=== PATIENT | female | born 1990 | race Caucasian/White ===

== ENCOUNTER 2019-05-15 18:27 | Emergency (ER) | payer OTHER ==
[~2019-05-15] VITALS: Ht 157.5 cm; Wt 49.1 kg
[2019-05-15] MEDS ORDERED: ONDANSETRON 4MG/2ML VIAL (J2405) IV ONE (19:30)
[2019-05-15] MEDS ORDERED: KETOROLAC 30 MG/ML VIAL (J1885) IV ONE (19:30)
[2019-05-15] MEDS ORDERED: NS 1,000 ML IV ONE (19:30)
[2019-05-15 19:58] LABS: BASO % 0.3 % (0.0-1.0); EOS # 0.2 10^3/uL (0.0-0.5); EOS % 2.7 % (0.0-3.0); HEMATOCRIT 38.2 % (36.0-47.0); HEMOGLOBIN 12.3 g/dl (12.0-15.5); LYMPH # 2.4 10^3/uL (1.5-5.0); LYMPH % 38.2 % (24.0-44.0); MEAN CORPUSCULAR HEMOGLOBIN 27.6 pg (27.0-33.0); MEAN CORPUSCULAR HGB CONC 32.2 g/dl (32.0-36.5); MEAN CORPUSCULAR VOLUME 85.7 fl (80.0-96.0); MONO # 0.5 10^3/uL (0.0-0.8); MONO % 7.7 % (0.0-5.0); NEUTROPHILS # 3.3 10^3/uL (1.5-8.5); NEUTROPHILS % 50.9 % (36.0-66.0); PLATELET COUNT, AUTOMATED 238 10^3/uL (150-450); RED BLOOD COUNT 4.46 10^6/uL (4.00-5.40); WHITE BLOOD COUNT 6.4 10^3/uL (4.0-10.0)
[2019-05-15 20:25] LABS: ALT/SGPT 23 U/L (12-78); BILIRUBIN,DIRECT < 0.1 MG/DL (0.0-0.2); BILIRUBIN,TOTAL 0.2 MG/DL (0.2-1.0); BLOOD UREA NITROGEN 16 MG/DL (7-18); CALCIUM LEVEL 9.2 MG/DL (8.5-10.1); CARBON DIOXIDE LEVEL 27 MEQ/L (21-32); CHLORIDE LEVEL 106 MEQ/L (98-107); CREATININE FOR GFR 0.68 MG/DL (0.55-1.30); GLOMERULAR FILTRATION RATE > 60.0 (>60); GLUCOSE, FASTING 107 MG/DL (70-100); LIPASE 101 U/L (73-393); SODIUM LEVEL 142 MEQ/L (136-145); TOTAL PROTEIN 7.5 GM/DL (6.4-8.2)
[2019-05-15] MEDS ORDERED: METOCLOPRAMIDE INJ 10MG/2ML VIAL (J2765) IV ONE (21:30)
[2019-05-15] MEDS: MORPHINE 4 MG/ML 1ML VIAL/SYRINGE (J2270) IV PRN ×2 (21:44→22:36)
[2019-05-15] MEDS: GASTROGRAFIN SOLUTION 30ML PO SCH ×2 (21:54→22:36)
[2019-05-15 23:09] LABS: CHLAMYDIA DNA AMPLIFICATION NEGATIVE (NEGATIVE); GC DNA AMPLIFICATION NEGATIVE (NEGATIVE)
[2019-05-15] MEDS ORDERED: ISOVUE-370 76% 100ML VIAL (Q9967) As Ordered ONE (23:30)
--- NOTE | 2019-05-16 00:17 | REPVR ---
PROCEDURE INFORMATION: Exam: CT Abdomen And Pelvis With Contrast Exam date and time: 05/15/2019 11:37 PM Age: 28 years old Clinical history: Abdominal pain; Localized; Lower; Additional info: Lower abd pain TECHNIQUE: Imaging protocol: Computed tomography of the abdomen and pelvis with intravenous contrast. Radiation optimization: All CT scans at this facility use at least one of these dose optimization techniques: automated exposure control; mA and/or kV adjustment per patient size (includes targeted exams where dose is matched to clinical indication); or iterative reconstruction. Contrast material: ISOVUE 370; Contrast volume: 100 ml; Contrast route: IV; COMPARISON: No relevant prior studies available. FINDINGS: Liver: There is intrahepatic and extra hepatic biliary duct dilation. The common bile and measuring up to 16 mm. Liver is otherwise unremarkable. Gallbladder and bile ducts: There has been prior cholecystectomy. No obstructing biliary tract calculus or mass. Pancreas: Normal. No ductal dilation. Spleen: Normal. No splenomegaly. Adrenals: Normal. No mass. Kidneys and ureters: Normal. No hydronephrosis. Stomach and bowel: Mild wall thickening in the sigmoid colon and rectum. No pneumatosis, obstruction, or mass. Proximal colon and small bowel are unremarkable. No obstruction. Appendix: No evidence of appendicitis. Intraperitoneal space: Unremarkable. No free air. No significant fluid collection. Vasculature: Unremarkable. No abdominal aortic aneurysm. Lymph nodes: Unremarkable. No enlarged lymph nodes. Bladder: Unremarkable as visualized. Reproductive: Unremarkable as visualized. Bones/joints: Unremarkable. No acute fracture. Soft tissues: Unremarkable. IMPRESSION: 1. Mild wall thickening in the sigmoid colon and rectum suggesting a mild proctocolitis. No bowel obstruction. 2. Intrahepatic and extrahepatic biliary duct dilation. No obstructing calculus is seen. Electronically signed by: Ayaan Lutz On 05/16/2019 00:16:59 AM
[2019-05-16] MEDS ORDERED: OXYCODONE/APAP 5MG/325MG(BULK FOR ED) 1 TABLET PO ONE (01:15)
[2019-05-16 01:24] VITALS: BP 110/59
== END 2019-05-16 01:35 | disposition home or self-care (01) ==
LOC: M ED 18:27
DX: N80.9 Endometriosis, unspecified (principal)
CPT/HCPCS: 74177; 80048; 80076; 81001; 83690; 84702; 85025; 87661; 96361; 96374; 96375; 99284; J1885; J2270; J2405; J2765; Q9963; Q9967

== ENCOUNTER 2019-10-15 18:23 | Emergency (ER) | payer OTHER ==
[~2019-10-15] VITALS: Ht 157.5 cm; Wt 50.5 kg
[2019-10-15 18:23] VITALS: BP 156/80
[2019-10-15] MEDS ORDERED: EVEN500C3 PO (18:28)
[2019-10-15] MEDS ORDERED: CETI10CA2 PO (18:28)
[2019-10-15] MEDS ORDERED: NS 1,000 ML IV ONE (19:00)
[2019-10-15] MEDS ORDERED: KETOROLAC 30 MG/ML 1ML VIAL IV ONE (19:00)
[2019-10-15] MEDS ORDERED: ONDANSETRON 4MG/2ML VIAL IV ONE (19:00)
[2019-10-15] MEDS ORDERED: ISOVUE-370 76% 100ML VIAL As Ordered ONE (19:20)
[2019-10-15 19:37] LABS: BASO % 0.6 % (0.0-1.0); EOS # 0.3 10^3/uL (0.0-0.5); EOS % 3.7 % (0.0-3.0); HEMATOCRIT 37.6 % (36.0-47.0); HEMOGLOBIN 12.5 g/dl (12.0-15.5); LYMPH # 2.9 10^3/uL (1.5-5.0); LYMPH % 40.7 % (24.0-44.0); MEAN CORPUSCULAR HEMOGLOBIN 27.7 pg (27.0-33.0); MEAN CORPUSCULAR HGB CONC 33.2 g/dl (32.0-36.5); MEAN CORPUSCULAR VOLUME 83.2 fl (80.0-96.0); MONO # 0.4 10^3/uL (0.0-0.8); NEUTROPHILS # 3.4 10^3/uL (1.5-8.5); NEUTROPHILS % 48.7 % (36.0-66.0); PLATELET COUNT, AUTOMATED 205 10^3/uL (150-450); RED BLOOD COUNT 4.52 10^6/uL (4.00-5.40)
[2019-10-15] MEDS ORDERED: MORPHINE 4 MG/ML 1ML VIAL/SYRINGE (J2270) IV ONE ×2 (19:45→20:30)
--- NOTE | 2019-10-15 19:50 | REPVR ---
PROCEDURE INFORMATION: Exam: CT Abdomen And Pelvis With Contrast Exam date and time: 10/15/2019 7:25 PM Age: 28 years old Clinical indication: Abdominal pain; Additional info: Llq pain TECHNIQUE: Imaging protocol: Computed tomography of the abdomen and pelvis with intravenous contrast. Radiation optimization: All CT scans at this facility use at least one of these dose optimization techniques: automated exposure control; mA and/or kV adjustment per patient size (includes targeted exams where dose is matched to clinical indication); or iterative reconstruction. Contrast material: ISO 370; Contrast volume: 100 ml; Contrast route: IV; COMPARISON: CT ABD/PEL W/IV ORAL CONTRAS 2019-05-15 23:35 FINDINGS: Liver: Normal. No mass. Gallbladder and bile ducts: Cholecystectomy clips in the right upper quadrant. There is a mild, expected degree of intrahepatic and common bile duct dilation. Pancreas: Normal. No ductal dilation. Spleen: Normal. No splenomegaly. Adrenals: Normal. No mass. Kidneys and ureters: Normal. No hydronephrosis. Stomach and bowel: Question mild wall thickening of the descending colon, correlate for mild infectious or inflammatory bowel disease. Appendix: No evidence of appendicitis. Intraperitoneal space: Unremarkable. No free air. No significant fluid collection. Vasculature: Unremarkable. No abdominal aortic aneurysm. Lymph nodes: Unremarkable. No enlarged lymph nodes. Bladder: Unremarkable as visualized. Reproductive: Hysterectomy. Bones/joints: Unremarkable. No acute fracture. Soft tissues: Unremarkable. IMPRESSION: Question mild wall thickening of the descending colon, correlate for mild infectious or inflammatory bowel disease. Electronically signed by: Dmitry Galvez On 10/15/2019 19:49:57 PM
[2019-10-15 20:01] LABS: ALBUMIN 4.6 GM/DL (3.2-5.2); BILIRUBIN,DIRECT 0.2 MG/DL (0.0-0.2); BILIRUBIN,TOTAL 0.5 MG/DL (0.2-1.0); TOTAL PROTEIN 8.1 GM/DL (6.4-8.2)
[2019-10-15] MEDS ORDERED: ONDA4TAB6 PO (20:27)
[2019-10-15] MEDS ORDERED: PRED20TA PO (20:27)
[2019-10-15] MEDS ORDERED: CIPR-249 PO (20:27)
[2019-10-15] MEDS ORDERED: FLAG500T PO (20:27)
[2019-10-15] MEDS ORDERED: CIPROFLOXACIN 500MG TABLET PO ONE (20:30)
[2019-10-15] MEDS ORDERED: METOCLOPRAMIDE INJ 10MG/2ML VIAL (J2765 PER 1) IV ONE (20:30)
[2019-10-15] MEDS ORDERED: methylPREDNISolone INJ 125 MG/2 ML VIAL (J2930) IV ONE (20:30)
[2019-10-15] MEDS ORDERED: metroNIDAZOLE (FLAGYL) 500 MG TAB PO ONE (20:30)
== END 2019-10-15 21:30 | disposition home or self-care (01) ==
LOC: M ED 18:23
DX: K52.9 Noninfective gastroenteritis and colitis, unspecified (principal); N80.9 Endometriosis, unspecified; Z79.899 Other long term (current) drug therapy
CPT/HCPCS: 74177; 80047; 80076; 81001; 83690; 85025; 96361; 96374; 96375; 96376; 99283; J1885; J2270; J2405; J2765; J2930; Q9967

== ENCOUNTER 2020-01-23 11:00 | Day surgery (SDC) | payer OTHER ==
[~2020-01-23 11:00] MED LIST: CETI10CA2 PO; CIPR-249 PO; EVEN500C3 PO; FLAG500T PO; ONDA4TAB6 PO; PRED20TA PO
[2020-01-23] MEDS ORDERED: LIDOCAINE 2% 100MG/5ML SDV (FOR ANES.) As Ordered ONE (11:40)
[2020-01-23] MEDS ORDERED: propofoL 200 MG/20 ML VIAL As Ordered ONE (11:40)
--- NOTE | 2020-02-29 11:27 | ROOR ---
Patient Name: Rhoda Berkowitz Procedure Date: 01/23/2020 11:38 AM Date of : 1990 Age: 29 Room: [facility] Gender: Female Note Status: Rn Intake Override Procedure: Total Colonoscopy to Cecum + ileoscopy Indications: Lower abdominal pain, Abnormal CT of the GI tract Providers: Dario Gonzales MD Referring MD: 1. No Referring Physician 1. No Referring Physician, Admin. Requesting Provider: Medicines: Monitored Anesthesia Care Complications: No immediate complications. Procedure: Pre-Anesthesia Assessment: - The heart rate, respiratory rate, oxygen saturations, blood pressure, adequacy of pulmonary ventilation, and response to care were monitored throughout the procedure. The Colonoscope was introduced through the anus and advanced to the terminal ileum, with identification of the appendiceal orifice and IC valve. The colonoscopy was performed without difficulty. The patient tolerated the procedure well. The quality of the bowel preparation was good. Findings: The perianal and digital rectal examinations were normal. Non-bleeding internal hemorrhoids were found during retroflexion. The hemorrhoids were small and Grade I (internal hemorrhoids that do not prolapse). No other significant abnormalities were identified in a careful examination of the remainder of the colon. The terminal ileum appeared normal. The exam was otherwise without abnormality. Impression: - Non-bleeding internal hemorrhoids. - The examined portion of the ileum was normal. - The examination was otherwise normal. - No specimens collected. - The exam was otherwise normal to the cecum. Recommendation: - Patient has a contact number available for emergencies. The signs and symptoms of potential delayed complications were discussed with the patient. Return to normal activities tomorrow. Written discharge instructions were provided to the patient. - High fiber diet. - Discharge patient to home. - Continue present medications. - Repeat colonoscopy at age 51 for screening purposes. - Return to referring physician. - The findings and recommendations were discussed with the patient. Dario Gonzales MD Dario Gonzales MD 01/23/2020 11:59:12 AM Number of Addenda: 0 Note Initiated On: 01/23/2020 11:38 AM Estimated Blood Loss: Estimated blood loss: none.
== END 2020-01-23 12:30 | disposition home or self-care (01) ==
LOC: M OPP 11:00
PROVIDERS: ATTEND Internal Medicine Gastroenterology
DX: K64.0 First degree hemorrhoids (principal); R10.30 Lower abdominal pain, unspecified; R93.3 Abnormal findings on diagnostic imaging of other parts of digestive tract

== ENCOUNTER 2020-11-07 13:51 | Emergency (ER) | payer OTHER ==
[~2020-11-07] VITALS: Ht 157.5 cm; Wt 47.7 kg
[2020-11-07] MEDS ORDERED: MORPHINE 4 MG/ML 1ML VIAL/SYRINGE (J2270) IV ONE ×2 (17:20→18:30)
[2020-11-07] MEDS ORDERED: ONDANSETRON 4MG/2ML VIAL IV ONE (17:20)
[2020-11-07] MEDS ORDERED: NS 1,000 ML IV ONE (17:20)
[2020-11-07 17:28] LABS: BASO % 0.3 % (0.0-1.0); EOS # 0.1 10^3/uL (0.0-0.5); EOS % 1.8 % (0.0-3.0); HEMATOCRIT 36.3 % (36.0-47.0); LYMPH # 2.4 10^3/uL (1.5-5.0); LYMPH % 39.8 % (24.0-44.0); MEAN CORPUSCULAR HEMOGLOBIN 27.4 pg (27.0-33.0); MEAN CORPUSCULAR HGB CONC 33.1 g/dl (32.0-36.5); MEAN CORPUSCULAR VOLUME 82.9 fl (80.0-96.0); MONO # 0.4 10^3/uL (0.0-0.8); MONO % 6.2 % (2.0-8.0); NEUTROPHILS # 3.2 10^3/uL (1.5-8.5); NEUTROPHILS % 51.6 % (36.0-66.0); PLATELET COUNT, AUTOMATED 230 10^3/uL (150-450); RED BLOOD COUNT 4.38 10^6/uL (4.00-5.40); WHITE BLOOD COUNT 6.1 10^3/uL (4.0-10.0)
[2020-11-07 17:33] LABS: ALBUMIN 4.3 GM/DL (3.2-5.2); ALT/SGPT 20 U/L (12-78); BILIRUBIN,DIRECT < 0.1 MG/DL (0.0-0.2); BILIRUBIN,TOTAL 0.4 MG/DL (0.2-1.0); LIPASE 125 U/L (73-393); TOTAL PROTEIN 7.7 GM/DL (6.4-8.2)
[2020-11-07] MEDS ORDERED: ISOVUE-370 76% 100ML VIAL As Ordered ONE (17:43)
--- NOTE | 2020-11-07 18:44 | REPVR ---
PROCEDURE INFORMATION: Exam: CT Abdomen And Pelvis With Contrast Exam date and time: 11/07/2020 5:55 PM Age: 29 years old Clinical indication: Other: Llq abd pain TECHNIQUE: Imaging protocol: Computed tomography of the abdomen and pelvis with contrast. Radiation optimization: All CT scans at this facility use at least one of these dose optimization techniques: automated exposure control; mA and/or kV adjustment per patient size (includes targeted exams where dose is matched to clinical indication); or iterative reconstruction. Contrast material: ISOVUE 370; Contrast volume: 100 ml; Contrast route: INTRAVENOUS (IV); COMPARISON: CT ABD/PEL W/IV CONTRAST ONLY 10/15/2019 7:21 PM FINDINGS: Lungs: The lung bases are unremarkable. Liver: There are no focal liver lesions. Liver parenchyma appears low dense which can be seen with fatty infiltration. There is a patent megaly with right lobe measurement of 19.4 cm in length. Dilatation of the distal hepatic bile duct and common bile duct is again noted. Gallbladder and bile ducts: Cholecystectomy. Pancreas: The pancreas is normal. Spleen: The spleen is unremarkable. Adrenal glands: The adrenal glands are unremarkable. Kidneys and ureters: The kidneys are unremarkable. Stomach and bowel: There is no small bowel dilatation. The descending colonic wall as well as the sigmoid colonic wall appears thickened however they are decompressed which limits evaluation. Palacio are not hyperemic. No pericolonic stranding is seen. Appendix: No evidence of appendicitis. Intraperitoneal space: Unremarkable. No free air. No significant fluid collection. Vasculature: The aorta is unremarkable. Lymph nodes: Unremarkable. No enlarged lymph nodes. Urinary bladder: The bladder is unremarkable. Reproductive: Unremarkable as visualized. Bones/joints: Unremarkable. No acute fracture. Soft tissues: Unremarkable. IMPRESSION: 1. As on the prior examination there appears to be thickening of the descending colonic wall as well as sigmoid colon although these 2 segments are decompressed. This may be due to infectious or noninfectious inflammatory disease among other etiologies. 2. There appears to be hepatomegaly with possible fatty infiltration. Electronically signed by: Elda Dillon On 11/07/2020 18:43:43 PM
[2020-11-07 19:35] VITALS: BP 132/77
[2020-11-07] MEDS ORDERED: DICYCLOMINE 10 MG CAP PO ONE (20:10)
[2020-11-07] MEDS ORDERED: DICY10CA13 PO (20:10)
[2020-11-07] MEDS ORDERED: CIPR-249 PO (20:10)
[2020-11-07] MEDS ORDERED: CIPROFLOXACIN 500MG TABLET PO ONE (20:10)
== END 2020-11-07 20:35 | disposition home or self-care (01) ==
LOC: M ED 13:51
DX: R10.32 Left lower quadrant pain (principal); K52.9 Noninfective gastroenteritis and colitis, unspecified; N80.9 Endometriosis, unspecified; J45.909 Unspecified asthma, uncomplicated
CPT/HCPCS: 74177; 80047; 80076; 81001; 83690; 84702; 85025; 96361; 96374; 96375; 96376; 99284; J2270; J2405; Q9967

== ENCOUNTER 2020-11-16 15:26 | Emergency (ER) | payer OTHER ==
[~2020-11-16] VITALS: Ht 157.5 cm; Wt 48.5 kg
[~2020-11-16 15:26] MED LIST changes: +DICY10CA13 PO
[2020-11-16 16:19] LABS: HEMOGLOBIN 12.2 g/dl (12.0-15.5); MEAN CORPUSCULAR HEMOGLOBIN 27.1 pg (27.0-33.0); MEAN CORPUSCULAR HGB CONC 32.1 g/dl (32.0-36.5); MEAN CORPUSCULAR VOLUME 84.3 fl (80.0-96.0); PLATELET COUNT, AUTOMATED 242 10^3/uL (150-450); RED BLOOD COUNT 4.51 10^6/uL (4.00-5.40); WHITE BLOOD COUNT 4.3 10^3/uL (4.0-10.0)
[2020-11-16 16:44] LABS: ALBUMIN 4.2 GM/DL (3.2-5.2); ALT/SGPT 20 U/L (12-78); BILIRUBIN,DIRECT < 0.1 MG/DL (0.0-0.2); BILIRUBIN,TOTAL 0.3 MG/DL (0.2-1.0); BLOOD UREA NITROGEN 17 MG/DL (7-18); CALCIUM LEVEL 9.8 MG/DL (8.5-10.1); CARBON DIOXIDE LEVEL 30 MEQ/L (21-32); CHLORIDE LEVEL 104 MEQ/L (98-107); CREATININE FOR GFR 0.74 MG/DL (0.55-1.30); GLOMERULAR FILTRATION RATE > 60.0 (>60); GLUCOSE, FASTING 84 MG/DL (70-100); LIPASE 136 U/L (73-393); POTASSIUM SERUM 4.5 MEQ/L (3.5-5.1); SODIUM LEVEL 138 MEQ/L (136-145); TOTAL PROTEIN 7.4 GM/DL (6.4-8.2)
[2020-11-16 16:54] LABS: ATYPICAL LYMPH 33 % (0-5); EOSINOPHILS 7 % (0-3); LYMPHOCYTES 28 % (16-44); MONOCYTES 1 % (0-5); NEUTROPHILS 26 % (28-66); PLATELET ESTIMATE NORMAL (NORMAL)
[2020-11-16] MEDS ORDERED: ONDANSETRON 4MG/2ML VIAL IV ONE ×2 (18:30→22:35)
[2020-11-16] MEDS ORDERED: NS 1,000 ML IV ONE (18:30)
[2020-11-16] MEDS ORDERED: MORPHINE 4 MG/ML 1ML VIAL/SYRINGE (J2270) IV ONE ×2 (18:30→21:45)
[2020-11-16 18:44] LABS: HCG, SERUM QUALITATIVE NEGATIVE (NEGATIVE)
[2020-11-16] MEDS: GASTROGRAFIN SOLUTION 30ML PO SCH ×2 (19:34→20:10)
[2020-11-16] MEDS ORDERED: KETOROLAC 30 MG/ML 1ML VIAL IV ONE (20:15)
[2020-11-16] MEDS ORDERED: ISOVUE-370 76% 100ML VIAL As Ordered ONE (20:46)
--- NOTE | 2020-11-16 22:06 | REPVR ---
PROCEDURE INFORMATION: Exam: CT Abdomen And Pelvis With Contrast Exam date and time: 11/16/2020 9:34 PM Age: 29 years old Clinical indication: Abdominal pain; Localized; Right lower quadrant (rlq); Additional info: Rlq abd pain TECHNIQUE: Imaging protocol: Computed tomography of the abdomen and pelvis with contrast. Radiation optimization: All CT scans at this facility use at least one of these dose optimization techniques: automated exposure control; mA and/or kV adjustment per patient size (includes targeted exams where dose is matched to clinical indication); or iterative reconstruction. Contrast material: ISOVUE 370; Contrast volume: 100 ml; Contrast route: INTRAVENOUS (IV); COMPARISON: CT ABD/PEL W/IV CONTRAST ONLY 11/07/2020 5:45 PM FINDINGS: Liver: Normal. No mass. Gallbladder and bile ducts: There has been a cholecystectomy. Pancreas: Normal. No ductal dilation. Spleen: Normal. No splenomegaly. Adrenal glands: Normal. No mass. Kidneys and ureters: Normal. No hydronephrosis. Stomach and bowel: Mobile cecum with increased feces demonstrated in the cecum and ascending colon consistent with right-sided constipation. Mild thickening of the wall of the left colon likely related to incomplete distention. Clinical correlation to exclude left-sided segmental colitis suggested. Appendix: The appendix is within normal limits. There is no appendiceal enlargement, periappendiceal inflammatory changes or abscess. Intraperitoneal space: Unremarkable. No free air. No significant fluid collection. Vasculature: Unremarkable. No abdominal aortic aneurysm. Lymph nodes: Unremarkable. No enlarged lymph nodes. Urinary bladder: Unremarkable as visualized. Reproductive: 2.8 cm simple appearing cyst right ovary likely functional. There has been a hysterectomy. Bones/joints: Unremarkable. No acute fracture. Soft tissues: Unremarkable. IMPRESSION: 1. There has been a cholecystectomy. 2. The appendix is within normal limits. There is no appendiceal enlargement, periappendiceal inflammatory changes or abscess. 3. Mobile cecum with increased feces demonstrated in the cecum and ascending colon consistent with right-sided constipation. 4. There has been a hysterectomy. 5. Mild thickening of the wall of the left colon likely related to incomplete distention. Clinical correlation to exclude left-sided segmental colitis suggested. There is a diffuse decrease in hepatic parenchymal density, consistent with steatosis. Electronically signed by: Ron Guajardo On 11/16/2020 22:06:05 PM
[2020-11-16] MEDS ORDERED: MIRALAX *UNIT DOSE* 17GM PACKET PO STA (22:08)
[2020-11-16] MEDS ORDERED: MAGNESIUM CITRATE 300 ML BTL PO ONE (22:35)
[2020-11-16 23:30] VITALS: BP 117/73
[2020-11-16] MEDS ORDERED: ONDA4TAB6 PO (23:36)
[2020-11-16] MEDS ORDERED: MIRA3350 PO (23:36)
== END 2020-11-16 23:49 | disposition home or self-care (01) ==
LOC: M ED 15:26
DX: K59.00 Constipation, unspecified (principal); R11.2 Nausea with vomiting, unspecified; R10.31 Right lower quadrant pain; J45.909 Unspecified asthma, uncomplicated; Z90.710 Acquired absence of both cervix and uterus
CPT/HCPCS: 74177; 80048; 80076; 81001; 83690; 84703; 85025; 96361; 96374; 96375; 96376; 99284; J1885; J2270; J2405; Q9963; Q9967

== ENCOUNTER 2021-03-25 07:54 | Emergency (ER) | payer OTHER ==
[~2021-03-25] VITALS: Ht 162.6 cm; Wt 48.4 kg
[~2021-03-25 07:54] MED LIST changes: +MIRA3350 PO
[2021-03-25] MEDS ORDERED: NAPR220C14 PO (08:05)
[2021-03-25] MEDS ORDERED: ONDANSETRON 4MG/2ML VIAL IV ONE (08:35)
[2021-03-25] MEDS ORDERED: KETOROLAC 30 MG/ML 1ML VIAL IV ONE ×3 (08:35→11:10)
[2021-03-25 09:04] LABS: BASO % 0.4 % (0.0-1.0); EOS # 0.2 10^3/uL (0.0-0.5); EOS % 3.6 % (0.0-3.0); HEMATOCRIT 37.5 % (36.0-47.0); HEMOGLOBIN 12.3 g/dl (12.0-15.5); LYMPH # 1.9 10^3/uL (1.5-5.0); LYMPH % 41.1 % (24.0-44.0); MEAN CORPUSCULAR HEMOGLOBIN 27.2 pg (27.0-33.0); MEAN CORPUSCULAR HGB CONC 32.8 g/dl (32.0-36.5); MEAN CORPUSCULAR VOLUME 82.8 fl (80.0-96.0); MONO # 0.3 10^3/uL (0.0-0.8); NEUTROPHILS # 2.2 10^3/uL (1.5-8.5); NEUTROPHILS % 47.5 % (36.0-66.0); PLATELET COUNT, AUTOMATED 235 10^3/uL (150-450); RED BLOOD COUNT 4.53 10^6/uL (4.00-5.40); WHITE BLOOD COUNT 4.7 10^3/uL (4.0-10.0)
[2021-03-25 09:05] LABS: APPEARANCE, URINE CLEAR (CLEAR); BACTERIA, URINE AUTO NEGATIVE (NEGATIVE); BILIRUBIN, URINE AUTO NEGATIVE (NEGATIVE); BLOOD, URINE BLOOD NEGATIVE (NEGATIVE); COLOR, URINE YELLOW (YELLOW); GLUCOSE, URINE (UA) AUTO NEGATIVE (NEGATIVE); KETONE, URINE AUTO NEGATIVE (NEGATIVE); LEUKOCYTE ESTERASE, URINE AUTO NEGATIVE (NEGATIVE); NITRITE, URINE AUTO NEGATIVE (NEGATIVE); PROTEIN, URINE AUTO NEGATIVE (NEGATIVE); RBC, URINE AUTO 0 /HPF (0-3); SPECIFIC GRAVITY URINE AUTO 1.015 (1.002-1.035); SQUAMOUS EPITHELIAL CELL UR AU 2 /HPF (0-6); UROBILINOGEN, URINE AUTO 0.2 mg/dL (0.0-2.0); WBC, URINE AUTO 0 /HPF (0-3)
[2021-03-25 09:26] LABS: ALBUMIN 4.1 GM/DL (3.2-5.2); ALT/SGPT 18 U/L (12-78); BILIRUBIN,DIRECT 0.1 MG/DL (0.0-0.2); BILIRUBIN,TOTAL 0.3 MG/DL (0.2-1.0); BLOOD UREA NITROGEN 23 MG/DL (7-18); CALCIUM LEVEL 9.1 MG/DL (8.5-10.1); CARBON DIOXIDE LEVEL 27 MEQ/L (21-32); CHLORIDE LEVEL 105 MEQ/L (98-107); CREATININE FOR GFR 0.84 MG/DL (0.55-1.30); GLOMERULAR FILTRATION RATE > 60.0 (>60); GLUCOSE, FASTING 108 MG/DL (70-100); LIPASE 91 U/L (73-393); SODIUM LEVEL 137 MEQ/L (136-145); TOTAL PROTEIN 7.6 GM/DL (6.4-8.2)
--- NOTE | 2021-03-25 10:02 | REP ---
INDICATION: left lower quadrant pain. COMPARISON: Comparison is made with CT images from November 16, 2020. TECHNIQUE: Supine film of the abdomen. Single KUB. FINDINGS: Bowel gas pattern is normal. Monitoring electrodes are seen. There are clips in right upper quadrant of the abdomen. Flank stripes are intact. Psoas margins are symmetric. No mass, organomegaly, or pathologic calcification is seen. IMPRESSION: Unremarkable KUB. Right upper quadrant clips. <Electronically signed by Jermaine Romero > 03/25/21 [id number]
[2021-03-25 10:12] LABS: AMPHETAMINES LEVEL URINE NEGATIVE (NEGATIVE); BARBITURATES URINE NEGATIVE (NEGATIVE); BENZODIAZEPINES URINE NEGATIVE (NEGATIVE); CANNABINOIDS URINE POSITIVE (NEGATIVE); COCAINE METABOLITE URINE NEGATIVE (NEGATIVE); METHADONE URINE NEGATIVE (NEGATIVE); OPIATES URINE NEGATIVE (NEGATIVE); PHENCYCLIDINE URINE NEGATIVE (NEGATIVE)
--- NOTE | 2021-03-25 11:22 | REP ---
INDICATION: left lower quadrant pain COMPARISON: None TECHNIQUE: Real time castillo scale ultrasound examination using curved array transducer. FINDINGS: Bilateral kidneys are normal in contour, size, echogenicity, and reniform shape. No hydronephrosis, nephrolithiasis, cystic or renal mass lesion. Right kidney measures 10.3 x 4.6 x 3.9 cm. Left kidney measures 11.1 x 4.3 x 5.0 cm. IMPRESSION: 1. Normal renal ultrasound. No hydronephrosis or definite nephrolithiasis. <Electronically signed by Sanchez Alamo > 03/25/21 [id number]
--- NOTE | 2021-03-25 11:23 | REP ---
INDICATION: left lower quadrant pain COMPARISON: None. TECHNIQUE: Transabdominal pelvic ultrasound with color Doppler evaluation of the ovaries. FINDINGS: Bladder is unremarkable and measures 7.3 x 5.4 x 9.3 cm. Patient is status post hysterectomy. No pelvic/adnexal mass lesion identified. Right ovary is not visualized. Left ovary is normal in appearance and vascularity measuring 3.6 x 1.9 x 2.8 cm (RI 0.41) and includes 1.5 cm dominant follicle. Small amount of free fluid in the pelvis is nonspecific and likely physiologic. IMPRESSION: Normal left ovary. Prior hysterectomy. Right ovary not visualized. <Electronically signed by Sanchez Alamo > 03/25/21 [id number]
[2021-03-25 11:44] VITALS: BP 140/90
== END 2021-03-25 11:50 | disposition home or self-care (01) ==
LOC: M ED 07:54
DX: N83.202 Unspecified ovarian cyst, left side (principal); R11.0 Nausea; Z87.442 Personal history of urinary calculi; Z90.710 Acquired absence of both cervix and uterus
CPT/HCPCS: 74018; 76775; 76856; 80048; 80076; 80307; 81001; 83690; 85025; 93041; 93976; 94760; 96374; 96375; 96376; 99284; J1885; J2405

== ENCOUNTER 2021-12-29 19:18 | Emergency (ER) | payer OTHER ==
[~2021-12-29] VITALS: Ht 157.5 cm; Wt 50.0 kg
[~2021-12-29 19:18] MED LIST changes: +NAPR220C14 PO
[2021-12-29] MEDS ORDERED: KETOROLAC 30 MG/ML 1ML VIAL IV ONE (20:15)
[2021-12-29] MEDS ORDERED: NS 1,000 ML IV ONE (20:15)
[2021-12-29 20:44] LABS: BASO % 0.3 % (0.0-1.0); EOS # 0.3 10^3/uL (0.0-0.5); EOS % 2.7 % (0.0-3.0); HEMATOCRIT 38.4 % (36.0-47.0); HEMOGLOBIN 12.7 g/dl (12.0-15.5); LYMPH # 2.8 10^3/uL (1.5-5.0); LYMPH % 26.4 % (24.0-44.0); MEAN CORPUSCULAR HEMOGLOBIN 27.9 pg (27.0-33.0); MEAN CORPUSCULAR HGB CONC 33.1 g/dl (32.0-36.5); MEAN CORPUSCULAR VOLUME 84.4 fl (80.0-96.0); MONO # 0.7 10^3/uL (0.0-0.8); MONO % 6.9 % (2.0-8.0); NEUTROPHILS # 6.8 10^3/uL (1.5-8.5); NEUTROPHILS % 63.3 % (36.0-66.0); PLATELET COUNT, AUTOMATED 272 10^3/uL (150-450); RED BLOOD COUNT 4.55 10^6/uL (4.00-5.40); WHITE BLOOD COUNT 10.7 10^3/uL (4.0-10.0)
[2021-12-29] MEDS ORDERED: MORPHINE 4 MG/ML 1ML VIAL/SYRINGE IV ONE (21:20)
[2021-12-29] MEDS ORDERED: ONDANSETRON 4MG 2ML VIAL IV ONE (21:20)
[2021-12-29] MEDS ORDERED: CIPR-249 PO (21:26)
[2021-12-29] MEDS ORDERED: KETO10TAB PO (21:26)
[2021-12-29] MEDS ORDERED: ONDA4TAB6 PO (21:26)
[2021-12-29 22:07] VITALS: BP 98/47
== END 2021-12-29 22:15 | disposition home or self-care (01) ==
LOC: M ED 19:18
DX: N39.0 Urinary tract infection, site not specified (principal); N83.209 Unspecified ovarian cyst, unspecified side; R51.9 Headache, unspecified; N80.9 Endometriosis, unspecified; Z79.899 Other long term (current) drug therapy
CPT/HCPCS: 74176; 81001; 85025; 87088; 87186; 96361; 96374; 96375; 99284; J1885; J2270; J2405

== ENCOUNTER 2022-01-21 06:35 | Emergency (ER) | payer OTHER, SELFPAY ==
[~2022-01-21] VITALS: Ht 157.5 cm; Wt 50.0 kg
[~2022-01-21 06:35] MED LIST changes: +KETO10TAB PO
[2022-01-21] MEDS ORDERED: NS 1,000 ML IV ONE (08:35)
[2022-01-21] MEDS ORDERED: ONDANSETRON 4MG 2ML VIAL IV ONE (08:35)
[2022-01-21 09:15] LABS: BASO % 0.2 % (0.0-1.0); EOS % 0.2 % (0.0-3.0); HEMATOCRIT 40.5 % (36.0-47.0); HEMOGLOBIN 13.1 g/dl (12.0-15.5); LYMPH # 0.8 10^3/uL (1.5-5.0); LYMPH % 17.4 % (24.0-44.0); MEAN CORPUSCULAR HEMOGLOBIN 27.3 pg (27.0-33.0); MEAN CORPUSCULAR HGB CONC 32.3 g/dl (32.0-36.5); MEAN CORPUSCULAR VOLUME 84.4 fl (80.0-96.0); MONO # 0.2 10^3/uL (0.0-0.8); MONO % 4.3 % (2.0-8.0); NEUTROPHILS # 3.7 10^3/uL (1.5-8.5); NEUTROPHILS % 77.5 % (36.0-66.0); PLATELET COUNT, AUTOMATED 223 10^3/uL (150-450); WHITE BLOOD COUNT 4.8 10^3/uL (4.0-10.0)
[2022-01-21 09:35] LABS: ALBUMIN 4.9 GM/DL (3.2-5.2); ALT/SGPT 28 U/L (12-78); BILIRUBIN,DIRECT 0.1 MG/DL (0.0-0.2); BILIRUBIN,TOTAL 0.6 MG/DL (0.2-1.0); LIPASE 79 U/L (73-393)
[2022-01-21] MEDS ORDERED: KETOROLAC 30 MG/ML 1ML VIAL IV ONE (09:40)
[2022-01-21 09:53] VITALS: BP 108/60
[2022-01-21 10:11] LABS: RSV AMPLIFICATION NEGATIVE (NEGATIVE)
[2022-01-21 10:40] LABS: BLOOD UREA NITROGEN 14 MG/DL (7-18); CALCIUM LEVEL 9.9 MG/DL (8.5-10.1); CARBON DIOXIDE LEVEL 24 MEQ/L (21-32); CHLORIDE LEVEL 106 MEQ/L (98-107); CREATININE FOR GFR 0.79 MG/DL (0.55-1.30); GLOMERULAR FILTRATION RATE > 60.0 (>60); GLUCOSE, FASTING 114 MG/DL (70-100); POTASSIUM SERUM 3.8 MEQ/L (3.5-5.1); SODIUM LEVEL 135 MEQ/L (136-145)
[2022-01-21] MEDS ORDERED: MORPHINE 2 MG/ML 1ML VIAL IV ONE (11:00)
[2022-01-21] MEDS ORDERED: ISOVUE-370 76% 100ML VIAL As Ordered ONE (11:39)
== END 2022-01-21 13:12 | disposition home or self-care (01) ==
LOC: M ED 06:35
DX: R10.9 Unspecified abdominal pain (principal); R11.2 Nausea with vomiting, unspecified; R19.7 Diarrhea, unspecified; Z87.442 Personal history of urinary calculi; Z87.42 Personal history of other diseases of the female genital tract
CPT/HCPCS: 36415; 74177; 76856; 80048; 80076; 81001; 83690; 84702; 85025; 87631; 96361; 96374; 96375; 99284; J1885; J2270; J2405; Q9967

== ENCOUNTER 2022-06-07 08:56 | Inpatient (IN) | payer SELFPAY ==
[~2022-06-07] VITALS: Ht 162.6 cm; Wt 51.2 kg
[2022-06-07] VITALS (21 sets, daily range): BP systolic 83–102; BP diastolic 44–66
[2022-06-07] MEDS ORDERED: PROPOFOL 1,000 MG/100 ML VIAL As Ordered ONE (09:21)
[2022-06-07] MEDS ORDERED: MIDAZOLAM 5MG/ML 1ML VIAL (J2250 PER 1MG) As Ordered ONE ×2 (09:21→11:25)
[2022-06-07 09:25] LABS: BASO # 0.1 10^3/uL (0.0-0.2); BASO % 0.2 % (0.0-1.0); HEMATOCRIT 38.3 % (36.0-47.0); HEMOGLOBIN 12.5 g/dl (12.0-15.5); LYMPH % 3.3 % (24.0-44.0); MEAN CORPUSCULAR HEMOGLOBIN 27.7 pg (27.0-33.0); MEAN CORPUSCULAR HGB CONC 32.6 g/dl (32.0-36.5); MEAN CORPUSCULAR VOLUME 84.7 fl (80.0-96.0); NEUTROPHILS # 26.5 10^3/uL (1.5-8.5); NEUTROPHILS % 85.4 % (36.0-66.0); PLATELET COUNT, AUTOMATED 344 10^3/uL (150-450); RED BLOOD COUNT 4.52 10^6/uL (4.00-5.40)
[2022-06-07] MEDS ORDERED: SUCCINYLCHOLINE INJ 200MG/10ML VIAL IV ONE (09:25)
[2022-06-07] MEDS ORDERED: propofoL 1,000 MG in IV 1 EA IV SCH (09:25)
[2022-06-07] MEDS ORDERED: MIDAZOLAM INJ 2MG/2ML VIAL (J2250 PER 1MG) IV ONE ×2 (09:25→11:25)
[2022-06-07] MEDS ORDERED: ETOMIDATE INJ 20MG/10ML VIAL IV ONE (09:25)
[2022-06-07] MEDS ORDERED: NS 1,000 ML IV ONE ×2 (09:25→10:35)
[2022-06-07] MEDS ORDERED: LIDOCAINE 2% 5ML JELLY UROJET TOP ONE (09:25)
[2022-06-07] MEDS ORDERED: ONDANSETRON 4MG 2ML VIAL IV ONE (09:30)
[2022-06-07] MEDS ORDERED: levETIRAcetam INJection 1,000 MG in D5W 100 ML IV ONE (09:30)
[2022-06-07] MEDS ORDERED: ACETAMINOPHEN 650MG SUPP PR ONE (09:35)
[2022-06-07] MEDS ORDERED: PIPERACILLIN/TAZOBACTAM SOD 4.5 GM in D5W MINI-BAG PLUS 50 ML IV ONE (09:35)
[2022-06-07] MEDS ORDERED: NS IV ONE (09:35)
[2022-06-07 09:39] LABS: ABG BASE EXCESS -6.1 (-2.0-2.0); ABG HCO3 19.4 MEQ/L (22.0-26.0); ABG O2 SATURATION 99.1 % (95.0-99.0); ABG PARTIAL PRESSURE CO2 38.3 mmHg (35.0-45.0); ABG PARTIAL PRESSURE O2 219.8 mmHg (75.0-100.0); ABG STANDARD HCO3 19.5 MEQ/L (22.0-26.0); ABG TOTAL CO2 20.6 MEQ/L (22.0-29.0); ABG pH (ARTERIAL) 7.322 UNITS (7.350-7.450)
[2022-06-07] MEDS ORDERED: MIDAZOLAM INJ 2MG/2ML VIAL (J2250 PER 1MG) IV STA (09:40)
[2022-06-07 09:43] LABS: MONO # 3.1 10^3/uL (0.0-0.8)
[2022-06-07] MEDS ORDERED: ISOVUE-370 76% 100ML VIAL As Ordered ONE (09:50)
[2022-06-07 09:55] LABS: RSV AMPLIFICATION NEGATIVE (NEGATIVE)
[2022-06-07] MEDS ORDERED: propofoL 200 MG/20 ML VIAL IV PRN (09:55)
[2022-06-07 09:59] LABS: ETHYL ALCOHOL (ETHANOL) 0.003 % (0.000-0.010)
[2022-06-07 10:01] LABS: ACETAMINOPHEN LEVEL < 2.0 UG/ML (10.0-20.0); ALBUMIN 4.3 G/DL (3.2-5.2); ALKALINE PHOSPHATASE 61 U/L (46-116); ALT/SGPT 28 U/L (7.0-40); AST/SGOT 28 U/L (<34); BILIRUBIN,DIRECT 0.1 MG/DL (<0.4); BILIRUBIN,TOTAL 0.3 MG/DL (0.3-1.2); BLOOD UREA NITROGEN 21 MG/DL (9-23); CALCIUM LEVEL 9.4 MG/DL (8.5-10.1); CARBON DIOXIDE LEVEL 16 MMOL/L (20-31); CHLORIDE LEVEL 107 MMOL/L (98-107); CPK CREATINE PHOSPHOKINASE 251 U/L (34-145); CREATININE FOR GFR 1.22 MG/DL (0.55-1.30); GLOMERULAR FILTRATION RATE 55.1 (>60); GLUCOSE, FASTING 101 MG/DL (60-100); HCG, SERUM QUALITATIVE NEGATIVE (NEGATIVE); POTASSIUM SERUM 4.5 MMOL/L (3.5-5.1); SALICYLATE LEVEL < 3.0 MG/DL (<30); SODIUM LEVEL 142 MMOL/L (136-145); TOTAL PROTEIN 7.6 G/DL (5.7-8.2)
[2022-06-07 10:03] LABS: THYROID STIMULATING HORMONE 2.103 uIU/ML (0.55-4.78)
[2022-06-07] MEDS ORDERED: fentaNYL 100 MCG/2 ML INJECTION IV ONE (10:25)
[2022-06-07] MEDS ORDERED: propofoL 200 MG/20 ML VIAL IV ONE ×3 (10:25→11:00)
[2022-06-07] MEDS ORDERED: FENTANYL DRIP LOCK BOX KEY 1 EACH XX PRN ×2 (10:25→12:00)
[2022-06-07] MEDS ORDERED: fentaNYL CITRATE/NaCl 1,000 MCG in IV 1 EA IV SCH (10:25)
[2022-06-07] MEDS ORDERED: MIDAZOLAM 100MG/100ML-0.9%NACL 100 MG in IV 1 EA IV SCH ×2 (11:20→21:40)
[2022-06-07 11:33] LABS: CK-MB VALUE MASS 4.7 NG/ML (<3.6)
[2022-06-07 11:35] LABS: MB/CK RELATIVE INDEX 0.92 (< OR =4)
[2022-06-07 11:37] LABS: AMPHETAMINES LEVEL URINE NEGATIVE (NEGATIVE); BARBITURATES URINE NEGATIVE (NEGATIVE)
[2022-06-07 11:38] LABS: COCAINE METABOLITE URINE NEGATIVE (NEGATIVE); METHADONE URINE NEGATIVE (NEGATIVE); OPIATES URINE NEGATIVE (NEGATIVE); PHENCYCLIDINE URINE NEGATIVE (NEGATIVE)
[2022-06-07 11:45] LABS: BENZODIAZEPINES URINE POSITIVE (NEGATIVE); CANNABINOIDS URINE POSITIVE (NEGATIVE)
[2022-06-07] MEDS ORDERED: VANCOMYCIN HCL 1,000 MG, VIAL MATE ADAPTER 1 EACH in D5W 250 ML IV ONE (12:00)
[2022-06-07 12:25] LABS: ABG BASE EXCESS -7.2 (-2.0-2.0); ABG HCO3 16.8 MEQ/L (22.0-26.0); ABG O2 SATURATION 96.8 % (95.0-99.0); ABG PARTIAL PRESSURE CO2 29.3 mmHg (35.0-45.0); ABG PARTIAL PRESSURE O2 93.2 mmHg (75.0-100.0); ABG STANDARD HCO3 18.6 MEQ/L (22.0-26.0); ABG TOTAL CO2 17.7 MEQ/L (22.0-29.0); ABG pH (ARTERIAL) 7.376 UNITS (7.350-7.450)
[2022-06-07] MEDS: MIDAZOLAM INJ 2MG/2ML VIAL (J2250 PER 1MG) IV PRN ×9 (12:49→23:04)
[2022-06-07] MEDS: ALBUTEROL SULFATE 2.5MG/0.5ML INH NEB SOLN NEB SCH ×3 (12:53→19:21)
[2022-06-07] MEDS: propofoL 1,000 MG in IV 1 EA IV SCH ×2 (13:11→17:21)
[2022-06-07] MEDS: fentaNYL CITRATE/NaCl 1,000 MCG in IV 1 EA IV SCH ×2 (13:12→21:34)
[2022-06-07] MEDS: CHLORHEXIDINE GLUCONATE 0.12 % 15ML UDC (PERIDEX ORAL RINSE) MT SCH ×2 (13:13→21:33)
[2022-06-07] MEDS: PANTOPRAZOLE 40MG VIAL IV SCH (13:13)
[2022-06-07] MEDS: NS 1,000 ML IV SCH ×2 (13:22→20:17)
[2022-06-07] MEDS: PIPERACILLIN/TAZOBACTAM SOD 3.375 GM in D5W MINI-BAG PLUS 50 ML IV SCH ×2 (17:21→23:29)
[2022-06-07] MEDS ORDERED: NS 500 ML IV ONE ×2 (18:05→21:40)
[2022-06-07] MEDS: VANCOMYCIN HCL 500 MG, VIAL MATE ADAPTER 1 EACH in NS 250 ML IV SCH (21:36)
[2022-06-07] MEDS: HEPARIN SOD (PORCINE) 5000UNITS/ML 1ML VIAL/SYRINGE SC SCH (21:36)
[2022-06-07] MEDS ORDERED: levETIRAcetam INJection 1,000 MG in D5W 100 ML IV SCH (23:00)
[2022-06-07] MEDS: dexmedeTOMidine 200 MCG in IV 1 EA IV SCH (23:05)
[2022-06-07] MEDS: levETIRAcetam INJection 1,000 MG in D5W 100 ML IV SCH (23:56)
[2022-06-08] VITALS (27 sets, daily range): BP systolic 72–123; BP diastolic 41–81
[2022-06-08] MEDS ORDERED: NS 500 ML IV SCH (01:20)
[2022-06-08] MEDS ORDERED: HYDROCORTISONE 100 MG/2 ML VIAL (J1720 PER 1) IV ONE (02:00)
[2022-06-08] MEDS: NS 1,000 ML IV SCH (02:40)
[2022-06-08] MEDS: PIPERACILLIN/TAZOBACTAM SOD 3.375 GM in D5W MINI-BAG PLUS 50 ML IV SCH (04:49)
[2022-06-08] MEDS: HEPARIN SOD (PORCINE) 5000UNITS/ML 1ML VIAL/SYRINGE SC SCH ×3 (05:27→22:20)
[2022-06-08 05:35] LABS: ABG BASE EXCESS -9.1 (-2.0-2.0); ABG HCO3 16.3 MEQ/L (22.0-26.0); ABG O2 SATURATION 98.2 % (95.0-99.0); ABG PARTIAL PRESSURE CO2 33.4 mmHg (35.0-45.0); ABG PARTIAL PRESSURE O2 129.1 mmHg (75.0-100.0); ABG STANDARD HCO3 17.2 MEQ/L (22.0-26.0); ABG TOTAL CO2 17.3 MEQ/L (22.0-29.0); ABG pH (ARTERIAL) 7.305 UNITS (7.350-7.450)
[2022-06-08] MEDS: MIDAZOLAM INJ 2MG/2ML VIAL (J2250 PER 1MG) IV PRN (05:49)
[2022-06-08] MEDS: dexmedeTOMidine 200 MCG in IV 1 EA IV SCH (05:52)
[2022-06-08 06:13] LABS: HEMATOCRIT 32.7 % (36.0-47.0); HEMOGLOBIN 10.6 g/dl (12.0-15.5); MEAN CORPUSCULAR HEMOGLOBIN 28.1 pg (27.0-33.0); MEAN CORPUSCULAR HGB CONC 32.4 g/dl (32.0-36.5); MEAN CORPUSCULAR VOLUME 86.7 fl (80.0-96.0); RED BLOOD COUNT 3.77 10^6/uL (4.00-5.40); WHITE BLOOD COUNT 13.6 10^3/uL (4.0-10.0)
[2022-06-08 06:14] LABS: PLATELET COUNT, AUTOMATED 195 10^3/uL (150-450)
[2022-06-08 06:37] LABS: ALKALINE PHOSPHATASE 43 U/L (46-116); ALT/SGPT 60 U/L (7.0-40); AST/SGOT 191 U/L (<34); BILIRUBIN,TOTAL 0.4 MG/DL (0.3-1.2); BLOOD UREA NITROGEN 18 MG/DL (9-23); CALCIUM LEVEL 8.1 MG/DL (8.5-10.1); CARBON DIOXIDE LEVEL 16 MMOL/L (20-31); CHLORIDE LEVEL 114 MMOL/L (98-107); CPK CREATINE PHOSPHOKINASE 5890 U/L (34-145); CREATININE FOR GFR 0.88 MG/DL (0.55-1.30); GLOMERULAR FILTRATION RATE > 60.0 (>60); GLUCOSE, FASTING 118 MG/DL (60-100); POTASSIUM SERUM 4.2 MMOL/L (3.5-5.1); SODIUM LEVEL 142 MMOL/L (136-145); TOTAL PROTEIN 5.5 G/DL (5.7-8.2)
[2022-06-08] MEDS: ALBUTEROL SULFATE 2.5MG/0.5ML INH NEB SOLN NEB SCH ×2 (08:09→16:00)
[2022-06-08] MEDS: PANTOPRAZOLE 40MG VIAL IV SCH (10:10)
[2022-06-08] MEDS: VANCOMYCIN HCL 500 MG, VIAL MATE ADAPTER 1 EACH in NS 250 ML IV SCH (10:10)
[2022-06-08] MEDS ORDERED: ONDANSETRON 4MG 2ML VIAL As Ordered ONE (10:59)
[2022-06-08] MEDS: ONDANSETRON 4MG 2ML VIAL IV PRN (11:15)
[2022-06-08 11:42] LABS: LIPASE 18 U/L (12-53)
[2022-06-08] MEDS: levETIRAcetam INJection 1,000 MG in D5W 100 ML IV SCH ×2 (11:43→22:20)
[2022-06-08] MEDS ORDERED: HALOPERIDOL 5MG/ML 1ML VIAL IV ONE (12:30)
[2022-06-08] MEDS: DOXYCYCLINE HYCLATE 100 MG in D5W MINI-BAG PLUS 100 ML IV SCH (12:45)
[2022-06-08] MEDS ORDERED: BISACODYL 10MG SUPP PR ONE (12:50)
[2022-06-08] MEDS ORDERED: MORPHINE 2 MG/ML 1ML VIAL IV PRN (12:50)
[2022-06-08] MEDS ORDERED: MORPHINE 4 MG/ML 1ML VIAL IV PRN (12:50)
[2022-06-08] MEDS ORDERED: NS 1,000 ML IV SCH (12:50)
[2022-06-08] MEDS ORDERED: ISOVUE-370 76% 100ML VIAL As Ordered ONE (13:08)
[2022-06-08] MEDS: LORazepam 2 MG/ML VIAL IV PRN ×3 (13:16→20:32)
[2022-06-08] MEDS: cefTRIAXone SOD 1 GM in D5W MINI-BAG PLUS 50 ML IV SCH (14:28)
[2022-06-08] MEDS: DOCUSATE SODIUM 100MG CAPSULE PO SCH (14:29)
[2022-06-08] MEDS ORDERED: ALBU8.5H INH (14:32)
[2022-06-08] MEDS ORDERED: GABA600T4 PO (14:32)
[2022-06-08] MEDS ORDERED: ONDA4TAB6 PO (14:32)
[2022-06-08] MEDS ORDERED: HOME MED LIST COMPLETE! XX SCH (14:35)
[2022-06-08 15:01] LABS: APPEARANCE, URINE MANUAL CLEAR (CLEAR); COLOR, URINE MANUAL COLORLESS (YELLOW); SPECIFIC GRAVITY,URINE MANUAL 1.005 (1.002-1.035)
[2022-06-08 15:03] LABS: BILIRUBIN, URINE MANUAL NEGATIVE (NEGATIVE); BLOOD URINE MANUAL POSITIVE (NEGATIVE); GLUCOSE, URINE (UA) MANUAL NEGATIVE (NEGATIVE); KETONE, URINE MANUAL 1+ mg/dL (NEGATIVE); LEUKOCYTE ESTERASE, URINE MAN NEGATIVE (NEGATIVE); NITRITE, URINE MANUAL NEGATIVE (NEGATIVE); PROTEIN, URINE MANUAL NEGATIVE (NEGATIVE); UROBILINOGEN, URINE MANUAL NORMAL (NORMAL)
[2022-06-08] MEDS ORDERED: ETOMIDATE INJ 20MG/10ML VIAL ONE (15:03)
[2022-06-08] MEDS ORDERED: SUCCINYLCHOLINE 100MG/5ML SYRINGE ONE (15:03)
[2022-06-08 15:14] LABS: RBC, URINE 15-20 /hpf (0-3); SQUAMOUS EPITHELIAL CELL URINE NONE SEEN /hpf (SMALL AMT); WBC, URINE NONE SEEN /hpf (0-3)
[2022-06-08 15:15] LABS: BACTERIA, URINE NONE SEEN; HYALINE CAST, URINE NONE SEEN /lpf (0-1); URIC ACID CRYSTALS, URINE MOD AMOUNT /hpf
[2022-06-08] MEDS: SODIUM BICARBONATE 75 MEQ in NS 0.45% 1,000 ML IV SCH (15:40)
[2022-06-08 19:42] LABS: BLOOD UREA NITROGEN 13 MG/DL (9-23); CALCIUM LEVEL 8.3 MG/DL (8.5-10.1); CARBON DIOXIDE LEVEL 18 MMOL/L (20-31); CHLORIDE LEVEL 112 MMOL/L (98-107); CREATININE FOR GFR 0.66 MG/DL (0.55-1.30); GLOMERULAR FILTRATION RATE > 60.0 (>60); GLUCOSE, FASTING 85 MG/DL (60-100); POTASSIUM SERUM 3.9 MMOL/L (3.5-5.1); SODIUM LEVEL 143 MMOL/L (136-145)
[2022-06-09] VITALS: BP 110/61
[2022-06-09] MEDS: DOXYCYCLINE HYCLATE 100 MG in D5W MINI-BAG PLUS 100 ML IV SCH ×2 (00:20→13:04)
[2022-06-09] MEDS: ALBUTEROL SULFATE 2.5MG/0.5ML INH NEB SOLN NEB SCH ×3 (00:27→15:16)
[2022-06-09] MEDS: SODIUM BICARBONATE 75 MEQ in NS 0.45% 1,000 ML IV SCH (02:18)
[2022-06-09] MEDS: LORazepam 2 MG/ML VIAL IV PRN (02:29)
[2022-06-09 04:00] VITALS: BP 141/69
[2022-06-09] MEDS: HEPARIN SOD (PORCINE) 5000UNITS/ML 1ML VIAL/SYRINGE SC SCH ×2 (05:45→14:57)
[2022-06-09 06:10] LABS: HEMOGLOBIN 9.3 g/dl (12.0-15.5); MEAN CORPUSCULAR HEMOGLOBIN 28.1 pg (27.0-33.0); MEAN CORPUSCULAR HGB CONC 33.2 g/dl (32.0-36.5); MEAN CORPUSCULAR VOLUME 84.6 fl (80.0-96.0); PLATELET COUNT, AUTOMATED 197 10^3/uL (150-450); RED BLOOD COUNT 3.31 10^6/uL (4.00-5.40); WHITE BLOOD COUNT 8.3 10^3/uL (4.0-10.0)
[2022-06-09 06:31] LABS: MAGNESIUM LEVEL 1.8 MG/DL (1.8-2.4)
[2022-06-09 06:33] LABS: ALBUMIN 3.2 G/DL (3.2-5.2); ALKALINE PHOSPHATASE 39 U/L (46-116); ALT/SGPT 100 U/L (7.0-40); AST/SGOT 246 U/L (<34); BILIRUBIN,TOTAL 0.3 MG/DL (0.3-1.2); BLOOD UREA NITROGEN 9 MG/DL (9-23); CALCIUM LEVEL 8.1 MG/DL (8.5-10.1); CARBON DIOXIDE LEVEL 22 MMOL/L (20-31); CHLORIDE LEVEL 111 MMOL/L (98-107); CREATININE FOR GFR 0.54 MG/DL (0.55-1.30); GLOMERULAR FILTRATION RATE > 60.0 (>60); GLUCOSE, FASTING 85 MG/DL (60-100); PHOSPHORUS LEVEL 1.3 MG/DL (2.5-4.9); POTASSIUM SERUM 3.5 MMOL/L (3.5-5.1); SODIUM LEVEL 145 MMOL/L (136-145); TOTAL PROTEIN 5.7 G/DL (5.7-8.2)
[2022-06-09 08:00] VITALS: BP 129/71
[2022-06-09 08:10] LABS: CPK CREATINE PHOSPHOKINASE 5504 U/L (34-145)
[2022-06-09] MEDS: ONDANSETRON 4MG 2ML VIAL IV PRN (08:18)
[2022-06-09] MEDS: PANTOPRAZOLE 40MG VIAL IV SCH (08:19)
[2022-06-09] MEDS: DOCUSATE SODIUM 100MG CAPSULE PO SCH (08:19)
[2022-06-09] MEDS ORDERED: SODIUM PHOSPHATE INJ 20 MMOL in D5W 250 ML IV ONE ×4 (11:00)
[2022-06-09] MEDS: levETIRAcetam INJection 1,000 MG in D5W 100 ML IV SCH (11:39)
[2022-06-09 12:00] VITALS: BP 122/77
[2022-06-09] MEDS: cefTRIAXone SOD 1 GM in D5W MINI-BAG PLUS 50 ML IV SCH (14:56)
[2022-06-09 16:00] VITALS: BP 125/77
[2022-06-09] MEDS ORDERED: K-PHOS NEUTRAL 250MG TABLET (SOD.PHOSPHATE/POT.PHOSPHATE) PO SCH (16:00)
[2022-06-09] MEDS ORDERED: DOXY-444 PO (17:05)
[2022-06-09] MEDS ORDERED: KEPP10002 PO (17:05)
[2022-06-09] MEDS ORDERED: CEFD300C41 PO (17:05)
[2022-06-10 10:34] LABS: HEPATITIS B SURFACE ANTIGEN NEGATIVE (NEGATIVE)
[2022-06-10 10:55] LABS: HEPATITIS C VIRUS ABY INDEX 0.1 INDEX (<0.8)
[2022-06-11 18:07] LABS: HEPATITIS A IgG TOTAL Positive (Negative); HEPATITIS B CORE ANTIBODY IGG Negative (Negative); HEPATITIS C QUANTITATION HCV Not Detected IU/mL (.)
== END 2022-06-09 17:40 | disposition left against medical advice (07) | DRG 720 ==
LOC: M ED 08:56 → EDBD 08:56 → M ED INP 11:28 → ENRESERV 11:46 → M ICU 12:32
PROVIDERS: ADMIT Internal Medicine; ATTEND Internal Medicine
PROC: 5A0945Z Assistance with Respiratory Ventilation, 24-96 Consecutive Hours (ICD-10-PCS; principal; 2022-06-07)
DX: A41.9 Sepsis, unspecified organism (principal); G93.40 Encephalopathy, unspecified; J96.01 Acute respiratory failure with hypoxia; J18.9 Pneumonia, unspecified organism; K56.7 Ileus, unspecified; E87.20 Acidosis, unspecified; M62.82 Rhabdomyolysis; R56.9 Unspecified convulsions; J45.909 Unspecified asthma, uncomplicated; G43.909 Migraine, unspecified, not intractable, without status migrainosus; F12.90 Cannabis use, unspecified, uncomplicated; F11.90 Opioid use, unspecified, uncomplicated; Z79.899 Other long term (current) drug therapy

== ENCOUNTER 2022-07-26 03:05 | Inpatient (IN) | payer OTHER, SELFPAY ==
[~2022-07-26] VITALS: Ht 172.7 cm; Wt 53.0 kg
[2022-07-26] VITALS (62 sets, daily range): BP systolic 75–112; BP diastolic 40–65; O2SAT 97
[~2022-07-26 03:05] MED LIST changes: +ALBU8.5H INH; +CEFD300C41 PO; +DOXY-444 PO; +GABA600T4 PO; +KEPP10002 PO
[2022-07-26] MEDS ORDERED: ETOMIDATE INJ 20MG/10ML VIAL IV STA (03:17)
[2022-07-26] MEDS ORDERED: ROCURONIUM BROMIDE 50MG/5ML VIAL IV SCH (03:20)
[2022-07-26] MEDS ORDERED: MIDAZOLAM 5MG/ML 1ML VIAL IV PRN (03:25)
[2022-07-26] MEDS ORDERED: MIDAZOLAM 100MG/100ML-0.9%NACL 100 MG in IV 1 EA IV SCH ×2 (03:40→05:35)
[2022-07-26 03:47] LABS: BASO % 0.3 % (0.0-1.0); EOS # 0.3 10^3/uL (0.0-0.5); EOS % 2.4 % (0.0-3.0); HEMOGLOBIN 12.8 g/dl (12.0-15.5); LYMPH # 6.6 10^3/uL (1.5-5.0); LYMPH % 45.4 % (24.0-44.0); MEAN CORPUSCULAR HGB CONC 29.1 g/dl (32.0-36.5); MEAN CORPUSCULAR VOLUME 96.3 fl (80.0-96.0); MONO # 1.3 10^3/uL (0.0-0.8); MONO % 9.1 % (2.0-8.0); NEUTROPHILS # 6.1 10^3/uL (1.5-8.5); PLATELET COUNT, AUTOMATED 320 10^3/uL (150-450); RED BLOOD COUNT 4.57 10^6/uL (4.00-5.40); WHITE BLOOD COUNT 14.4 10^3/uL (4.0-10.0)
[2022-07-26] MEDS ORDERED: LEVE10003 PO (03:53)
[2022-07-26] MEDS ORDERED: OMEP40CA5 PO (03:53)
[2022-07-26] MEDS ORDERED: OXYC7.5T3 PO (03:53)
[2022-07-26] MEDS ORDERED: med rec comment (03:54)
[2022-07-26] MEDS ORDERED: HOME MED LIST COMPLETE! XX SCH (03:55)
[2022-07-26 03:59] LABS: ABG BASE EXCESS -20.8 (-2.0-2.0); ABG HCO3 10.2 MEQ/L (22.0-26.0); ABG PARTIAL PRESSURE CO2 43.2 mmHg (35.0-45.0); ABG PARTIAL PRESSURE O2 232.2 mmHg (75.0-100.0); ABG STANDARD HCO3 9.6 MEQ/L (22.0-26.0); ABG TOTAL CO2 11.5 MEQ/L (22.0-29.0)
[2022-07-26 04:03] LABS: ABG pH (ARTERIAL) 6.991 UNITS (7.350-7.450)
[2022-07-26 04:13] LABS: AMPHETAMINES LEVEL URINE NEGATIVE (NEGATIVE); BARBITURATES URINE NEGATIVE (NEGATIVE); COCAINE METABOLITE URINE NEGATIVE (NEGATIVE)
[2022-07-26 04:14] LABS: METHADONE URINE NEGATIVE (NEGATIVE); OPIATES URINE NEGATIVE (NEGATIVE); PHENCYCLIDINE URINE NEGATIVE (NEGATIVE)
[2022-07-26 04:30] LABS: ACETAMINOPHEN LEVEL < 2.0 UG/ML (10.0-20.0); ALBUMIN 4.7 G/DL (3.2-5.2); ALKALINE PHOSPHATASE 56 U/L (46-116); ALT/SGPT 17 U/L (7.0-40); AST/SGOT 26 U/L (<34); BILIRUBIN,DIRECT 0.1 MG/DL (<0.4); BILIRUBIN,TOTAL 0.4 MG/DL (0.3-1.2); BLOOD UREA NITROGEN 14 MG/DL (9-23); CALCIUM LEVEL 9.8 MG/DL (8.5-10.1); CARBON DIOXIDE LEVEL < 10.0 MMOL/L (20-31); CHLORIDE LEVEL 108 MMOL/L (98-107); CPK CREATINE PHOSPHOKINASE 146 U/L (34-145); CREATININE FOR GFR 0.96 MG/DL (0.55-1.30); ETHYL ALCOHOL (ETHANOL) 0.004 % (0.000-0.010); GLOMERULAR FILTRATION RATE > 60.0 (>60); GLUCOSE, FASTING 184 MG/DL (60-100); POTASSIUM SERUM 4.1 MMOL/L (3.5-5.1); SALICYLATE LEVEL < 3.0 MG/DL (<30); SODIUM LEVEL 145 MMOL/L (136-145); THYROID STIMULATING HORMONE 7.501 uIU/ML (0.55-4.78); TOTAL PROTEIN 8.4 G/DL (5.7-8.2)
[2022-07-26] MEDS ORDERED: PHENYTOIN INJ 250MG/5ML VIAL IV ONE (04:30)
[2022-07-26 04:32] LABS: BENZODIAZEPINES URINE POSITIVE (NEGATIVE); CANNABINOIDS URINE POSITIVE (NEGATIVE)
[2022-07-26] MEDS ORDERED: levETIRAcetam INJection 1,000 MG in D5W 100 ML IV ONE (04:40)
[2022-07-26] MEDS ORDERED: PHENYTOIN INJection 1,000 MG in NS 100 ML IV ONE ×3 (04:40→04:52)
[2022-07-26] MEDS ORDERED: ROCURONIUM BROMIDE 50MG/5ML VIAL IV ONE (04:40)
[2022-07-26] MEDS ORDERED: propofoL 1,000 MG in IV 1 EA IV SCH (04:40)
[2022-07-26 04:46] LABS: HCG, SERUM QUALITATIVE NEGATIVE (NEGATIVE)
[2022-07-26] MEDS ORDERED: NS 1,000 ML IV SCH (04:55)
[2022-07-26] MEDS ORDERED: NS 1,000 ML IV ONE ×2 (04:55→05:35)
[2022-07-26 05:01] LABS: APPEARANCE, URINE MANUAL CLEAR (CLEAR); COLOR, URINE MANUAL LT YELLOW (YELLOW)
[2022-07-26 05:02] LABS: PROTEIN, URINE MANUAL TRACE mg/dL (NEGATIVE)
[2022-07-26 05:03] LABS: BILIRUBIN, URINE MANUAL NEGATIVE (NEGATIVE); BLOOD URINE MANUAL POSITIVE (NEGATIVE); GLUCOSE, URINE (UA) MANUAL 2+(250 MG/DL) mg/dL (NEGATIVE); KETONE, URINE MANUAL NEGATIVE (NEGATIVE); LEUKOCYTE ESTERASE, URINE MAN NEGATIVE (NEGATIVE); NITRITE, URINE MANUAL NEGATIVE (NEGATIVE); UROBILINOGEN, URINE MANUAL NORMAL (NORMAL)
[2022-07-26] MEDS ORDERED: SODIUM BICARBONATE 8.4% INJ 50ML SYRINGE IV STA (05:04)
[2022-07-26] MEDS ORDERED: SODIUM BICARBONATE 150 MEQ in D5W 1,000 ML IV SCH ×2 (05:05→14:30)
[2022-07-26 05:18] LABS: BACTERIA, URINE SMALL AMOUNT; HYALINE CAST, URINE NONE SEEN /lpf (0-1); SQUAMOUS EPITHELIAL CELL URINE NONE SEEN /hpf (SMALL AMT)
[2022-07-26 05:30] LABS: OSMOLALITY SERUM 319 MOSM/KG (275-295)
[2022-07-26] MEDS ORDERED: GLUCAGON INJ 1MG VIAL SC PRN (05:35)
[2022-07-26] MEDS ORDERED: GLUCOSE 4GM CHEW TABLET PO PRN (05:35)
[2022-07-26] MEDS ORDERED: DEXTROSE 50% 50ML SYRINGE IV PRN (05:35)
[2022-07-26 05:50] LABS: ABG BASE EXCESS -6.3 (-2.0-2.0); ABG HCO3 20.6 MEQ/L (22.0-26.0); ABG PARTIAL PRESSURE CO2 46.5 mmHg (35.0-45.0); ABG PARTIAL PRESSURE O2 183.8 mmHg (75.0-100.0); ABG STANDARD HCO3 19.3 MEQ/L (22.0-26.0); ABG pH (ARTERIAL) 7.264 UNITS (7.350-7.450)
[2022-07-26] MEDS: INSULIN LISPRO (NovoLOG) PER UNIT SC SCH ×3 (06:00→18:00)
[2022-07-26] MEDS: HEPARIN SOD (PORCINE) 5000UNITS/ML 1ML VIAL/SYRINGE SC SCH ×3 (06:00→21:08)
[2022-07-26 06:04] LABS: FREE T4 1.06 NG/DL (0.89-1.76)
[2022-07-26] MEDS ORDERED: LORazepam 2 MG/ML 1ML VIAL IV PRN ×3 (06:25→11:00)
[2022-07-26] MEDS: propofoL 1,000 MG in IV 1 EA IV SCH ×2 (06:40→09:56)
[2022-07-26] MEDS ORDERED: MIDAZOLAM INJ 2MG/2ML VIAL IV STA ×2 (07:32→07:33)
[2022-07-26] MEDS ORDERED: MIDAZOLAM INJ 2MG/2ML VIAL As Ordered ONE (07:35)
[2022-07-26 08:47] LABS: ABG BASE EXCESS -2.7 (-2.0-2.0); ABG HCO3 21.2 MEQ/L (22.0-26.0); ABG O2 SATURATION 98.9 % (95.0-99.0); ABG PARTIAL PRESSURE O2 170.3 mmHg (75.0-100.0); ABG STANDARD HCO3 22.2 MEQ/L (22.0-26.0); ABG TOTAL CO2 22.3 MEQ/L (22.0-29.0); ABG pH (ARTERIAL) 7.413 UNITS (7.350-7.450)
[2022-07-26] MEDS ORDERED: LR 1,000 ML IV ONE ×3 (09:00→19:00)
[2022-07-26] MEDS: MIDAZOLAM 100MG/100ML-0.9%NACL 100 MG in IV 1 EA IV SCH ×2 (09:31→16:58)
[2022-07-26] MEDS: fentaNYL CITRATE/NaCl 1,000 MCG in IV 1 EA IV SCH (09:58)
[2022-07-26] MEDS: CHLORHEXIDINE GLUCONATE 0.12 % 15ML UDC (PERIDEX ORAL RINSE) MT SCH ×2 (10:11→21:06)
[2022-07-26] MEDS: PIPERACILLIN/TAZOBACTAM SOD 4.5 GM in D5W MINI-BAG PLUS 50 ML IV SCH ×3 (10:11→21:07)
[2022-07-26] MEDS: LR 1,000 ML IV SCH ×3 (10:12→21:08)
[2022-07-26 12:57] LABS: ABG BASE EXCESS -0.3 (-2.0-2.0); ABG HCO3 22.7 MEQ/L (22.0-26.0); ABG O2 SATURATION 98.7 % (95.0-99.0); ABG PARTIAL PRESSURE CO2 31.7 mmHg (35.0-45.0); ABG STANDARD HCO3 24.3 MEQ/L (22.0-26.0); ABG TOTAL CO2 23.7 MEQ/L (22.0-29.0); ABG pH (ARTERIAL) 7.473 UNITS (7.350-7.450)
[2022-07-26] MEDS: PHENYTOIN 100MG/2ML VIAL IV SCH ×2 (13:52→21:07)
[2022-07-26] MEDS ORDERED: PHENYTOIN 100MG/2ML VIAL IV SCH (14:00)
[2022-07-26] MEDS: dexmedeTOMidine 200 MCG in IV 1 EA IV SCH ×2 (16:22→22:42)
[2022-07-26] MEDS ORDERED: PHENYLEPHRINE HCL INJ 50 MG in D5W 495 ML IV SCH (19:30)
[2022-07-27] VITALS (64 sets, daily range): BP systolic 90–121; BP diastolic 50–72
[2022-07-27] MEDS: fentaNYL CITRATE/NaCl 1,000 MCG in IV 1 EA IV SCH (01:52)
[2022-07-27] MEDS: PIPERACILLIN/TAZOBACTAM SOD 4.5 GM in D5W MINI-BAG PLUS 50 ML IV SCH ×4 (02:38→20:30)
[2022-07-27] MEDS: propofoL 1,000 MG in IV 1 EA IV SCH (04:51)
[2022-07-27] MEDS: PHENYTOIN 100MG/2ML VIAL IV SCH ×3 (05:02→13:51)
[2022-07-27] MEDS: INSULIN LISPRO (NovoLOG) PER UNIT SC SCH ×3 (05:03→12:00)
[2022-07-27] MEDS: HEPARIN SOD (PORCINE) 5000UNITS/ML 1ML VIAL/SYRINGE SC SCH ×4 (05:03→21:36)
[2022-07-27 06:05] LABS: ABG BASE EXCESS 1.3 (-2.0-2.0); ABG HCO3 25.1 MEQ/L (22.0-26.0); ABG O2 SATURATION 98.8 % (95.0-99.0); ABG PARTIAL PRESSURE CO2 36.7 mmHg (35.0-45.0); ABG PARTIAL PRESSURE O2 146.6 mmHg (75.0-100.0); ABG SITE ART LINE; ABG STANDARD HCO3 25.7 MEQ/L (22.0-26.0); ABG TOTAL CO2 26.2 MEQ/L (22.0-29.0); ABG pH (ARTERIAL) 7.453 UNITS (7.350-7.450)
[2022-07-27 06:24] LABS: BASO % 0.1 % (0.0-1.0); EOS % 0.5 % (0.0-3.0); HEMATOCRIT 32.1 % (36.0-47.0); LYMPH # 2.1 10^3/uL (1.5-5.0); LYMPH % 25.5 % (24.0-44.0); MEAN CORPUSCULAR HEMOGLOBIN 28.1 pg (27.0-33.0); MEAN CORPUSCULAR HGB CONC 32.1 g/dl (32.0-36.5); MEAN CORPUSCULAR VOLUME 87.5 fl (80.0-96.0); MONO # 0.9 10^3/uL (0.0-0.8); MONO % 11.4 % (2.0-8.0); NEUTROPHILS # 5.1 10^3/uL (1.5-8.5); NEUTROPHILS % 62.4 % (36.0-66.0); PLATELET COUNT, AUTOMATED 178 10^3/uL (150-450); RED BLOOD COUNT 3.67 10^6/uL (4.00-5.40); WHITE BLOOD COUNT 8.2 10^3/uL (4.0-10.0)
[2022-07-27 06:25] LABS: HEMOGLOBIN 10.3 g/dl (12.0-15.5)
[2022-07-27 06:46] LABS: ALBUMIN 3.1 G/DL (3.2-5.2); ALKALINE PHOSPHATASE 40 U/L (46-116); ALT/SGPT 14 U/L (7.0-40); AST/SGOT 21 U/L (<34); BILIRUBIN,TOTAL 0.7 MG/DL (0.3-1.2); BLOOD UREA NITROGEN 7 MG/DL (9-23); CALCIUM LEVEL 8.7 MG/DL (8.5-10.1); CARBON DIOXIDE LEVEL 25 MMOL/L (20-31); CHLORIDE LEVEL 107 MMOL/L (98-107); CREATININE FOR GFR 0.67 MG/DL (0.55-1.30); GLOMERULAR FILTRATION RATE > 60.0 (>60); GLUCOSE, FASTING 91 MG/DL (60-100); POTASSIUM SERUM 3.7 MMOL/L (3.5-5.1); SODIUM LEVEL 139 MMOL/L (136-145); TOTAL PROTEIN 5.5 G/DL (5.7-8.2)
[2022-07-27] MEDS: CHLORHEXIDINE GLUCONATE 0.12 % 15ML UDC (PERIDEX ORAL RINSE) MT SCH (07:39)
[2022-07-27] MEDS: MIDAZOLAM 100MG/100ML-0.9%NACL 100 MG in IV 1 EA IV SCH (07:42)
[2022-07-27] MEDS: dexmedeTOMidine 200 MCG in IV 1 EA IV SCH (08:17)
[2022-07-27] MEDS: LR 1,000 ML IV SCH (11:28)
[2022-07-27] MEDS: PHENYTOIN ER 100 MG CAP PO SCH ×2 (14:48→21:35)
[2022-07-27] MEDS ORDERED: FAMOTIDINE 40MG/5ML ORAL SUSPENSON 50ML BOTTLE PO ONE (19:00)
[2022-07-27] MEDS ORDERED: diphenhydrAMINE 25MG CAP PO ONE (21:00)
[2022-07-28] VITALS: BP 110/59
[2022-07-28] MEDS: PIPERACILLIN/TAZOBACTAM SOD 4.5 GM in D5W MINI-BAG PLUS 50 ML IV SCH ×2 (02:49→08:57)
[2022-07-28 04:00] VITALS: BP 97/55
[2022-07-28] MEDS: PHENYTOIN ER 100 MG CAP PO SCH ×2 (05:53→13:58)
[2022-07-28] MEDS: HEPARIN SOD (PORCINE) 5000UNITS/ML 1ML VIAL/SYRINGE SC SCH ×3 (05:53→19:48)
[2022-07-28 07:18] LABS: BASO % 0.1 % (0.0-1.0); EOS # 0.1 10^3/uL (0.0-0.5); EOS % 0.9 % (0.0-3.0); HEMATOCRIT 34.9 % (36.0-47.0); HEMOGLOBIN 11.4 g/dl (12.0-15.5); LYMPH # 1.3 10^3/uL (1.5-5.0); MEAN CORPUSCULAR HEMOGLOBIN 28.1 pg (27.0-33.0); MEAN CORPUSCULAR HGB CONC 32.7 g/dl (32.0-36.5); MONO # 0.7 10^3/uL (0.0-0.8); MONO % 8.1 % (2.0-8.0); NEUTROPHILS % 74.8 % (36.0-66.0); PLATELET COUNT, AUTOMATED 174 10^3/uL (150-450); RED BLOOD COUNT 4.06 10^6/uL (4.00-5.40); WHITE BLOOD COUNT 8.1 10^3/uL (4.0-10.0)
[2022-07-28 07:45] LABS: ALBUMIN 3.3 G/DL (3.2-5.2); ALKALINE PHOSPHATASE 45 U/L (46-116); ALT/SGPT 15 U/L (7.0-40); AST/SGOT 24 U/L (<34); BILIRUBIN,TOTAL 0.7 MG/DL (0.3-1.2); BLOOD UREA NITROGEN 10 MG/DL (9-23); CALCIUM LEVEL 8.4 MG/DL (8.5-10.1); CARBON DIOXIDE LEVEL 23 MMOL/L (20-31); CHLORIDE LEVEL 103 MMOL/L (98-107); GLOMERULAR FILTRATION RATE > 60.0 (>60); GLUCOSE, FASTING 68 MG/DL (60-100); MAGNESIUM LEVEL 1.6 MG/DL (1.8-2.4); POTASSIUM SERUM 3.5 MMOL/L (3.5-5.1); SODIUM LEVEL 138 MMOL/L (136-145); TOTAL PROTEIN 6.4 G/DL (5.7-8.2)
[2022-07-28 08:00] VITALS: BP 95/63
[2022-07-28] MEDS ORDERED: MAGNESIUM OXIDE 400MG TAB (MAG-OX) PO ONE (09:00)
[2022-07-28 09:06] LABS: PHOSPHORUS LEVEL 3.3 MG/DL (2.5-4.9)
[2022-07-28 11:28] LABS: PHENYTOIN (DILANTIN) 17.6 UG/ML (10.0-20.0)
[2022-07-28] MEDS: OMEPRAZOLE 20MG CAP PO SCH (13:58)
[2022-07-28 14:00] VITALS: BP 123/73
[2022-07-28 18:30] VITALS: BP 120/87
[2022-07-28] MEDS ORDERED: diphenhydrAMINE 25MG CAP PO PRN (19:55)
[2022-07-28 20:00] VITALS: BP 103/67
[2022-07-28] MEDS: levETIRAcetam 250MG TABLET (KEPPRA) PO SCH (20:10)
[2022-07-29] MEDS: HEPARIN SOD (PORCINE) 5000UNITS/ML 1ML VIAL/SYRINGE SC SCH (05:02)
[2022-07-29 06:00] VITALS: BP 124/78
[2022-07-29 07:18] LABS: HEMATOCRIT 37.1 % (36.0-47.0); HEMOGLOBIN 12.1 g/dl (12.0-15.5); MEAN CORPUSCULAR HGB CONC 32.6 g/dl (32.0-36.5); MEAN CORPUSCULAR VOLUME 85.9 fl (80.0-96.0); PLATELET COUNT, AUTOMATED 213 10^3/uL (150-450); RED BLOOD COUNT 4.32 10^6/uL (4.00-5.40); WHITE BLOOD COUNT 4.6 10^3/uL (4.0-10.0)
[2022-07-29 07:35] LABS: BLOOD UREA NITROGEN 13 MG/DL (9-23); CALCIUM LEVEL 9.1 MG/DL (8.5-10.1); CARBON DIOXIDE LEVEL 28 MMOL/L (20-31); CHLORIDE LEVEL 105 MMOL/L (98-107); CREATININE FOR GFR 0.65 MG/DL (0.55-1.30); GLOMERULAR FILTRATION RATE > 60.0 (>60); GLUCOSE, FASTING 95 MG/DL (60-100); MAGNESIUM LEVEL 1.9 MG/DL (1.8-2.4); POTASSIUM SERUM 3.4 MMOL/L (3.5-5.1); SODIUM LEVEL 141 MMOL/L (136-145)
[2022-07-29] MEDS: levETIRAcetam 250MG TABLET (KEPPRA) PO SCH (08:19)
[2022-07-29] MEDS: OMEPRAZOLE 20MG CAP PO SCH (08:19)
[2022-07-29] MEDS ORDERED: POTASSIUM CHLORIDE 10MEQ SR TABLET PO ONE (09:30)
[2022-07-29] MEDS ORDERED: LEVE10003 PO (11:08)
== END 2022-07-29 11:35 | disposition home or self-care (01) | DRG 812 ==
LOC: M ED 03:05 → EDBD 03:05 → M ED INP 05:33 → M ICU 06:19 → M MSPAV 07-28 18:28
PROVIDERS: ADMIT Internal Medicine; ATTEND Internal Medicine
PROC: 0BH17EZ Insertion of Endotracheal Airway into Trachea, Via Natural or Artificial Opening (ICD-10-PCS; principal; 2022-07-26)
PROC: 5A1945Z Respiratory Ventilation, 24-96 Consecutive Hours (ICD-10-PCS; 2022-07-26)
DX: T50.901A Poisoning by unspecified drugs, medicaments and biological substances, accidental (unintentional), initial encounter (principal); G93.41 Metabolic encephalopathy; G40.901 Epilepsy, unspecified, not intractable, with status epilepticus; G43.909 Migraine, unspecified, not intractable, without status migrainosus; E87.20 Acidosis, unspecified; E83.42 Hypomagnesemia; N80.9 Endometriosis, unspecified; J45.909 Unspecified asthma, uncomplicated; Z90.79 Acquired absence of other genital organ(s); Z90.49 Acquired absence of other specified parts of digestive tract; Z79.899 Other long term (current) drug therapy; Z20.822 Contact with and (suspected) exposure to COVID-19

== ENCOUNTER → 2022-08-06 | Outpatient (REF) | payer OTHER ==
[~2022-08-06] MED LIST changes: +LEVE10003 PO; +OMEP40CA5 PO; +OXYC7.5T3 PO; +med rec comment
== END ==
LOC: M LAB REF 17:37
PROVIDERS: ATTEND Otolaryngology
DX: G40.89 Other seizures (principal); R04.2 Hemoptysis

== ENCOUNTER → 2025-02-24 | Outpatient (CLI) | payer BC ==
[~2025-02-24] MED LIST changes: +CEFD1CAP9 PO; -CEFD300C41 PO; +DICY-61 PO; -DICY10CA13 PO; +DOXY-440 PO; -DOXY-444 PO; -EVEN500C3 PO; +EVEN500C7 PO; +GABA-1490 PO; -GABA600T4 PO; +ISOVUE-370 76% 100 ML VIAL As Ordered ONE; +ONDA-282 PO; -ONDA4TAB6 PO
== END ==
LOC: M RAD 14:23
PROVIDERS: ATTEND Internal Medicine Cardiovascular Disease
DX: R10.0 Acute abdomen (principal)
CPT/HCPCS: 74174; Q9967